=== PATIENT | female | born 1970 | race Hispanic/Latino ===

== ENCOUNTER 2016-08-27 15:10 | Emergency (ER) | payer OTHER ==
[~2016-08-27] VITALS: Ht 165.1 cm; Wt 77.1 kg
--- NOTE | 2016-08-27 16:28 | ED INFLUENZA/URI COMPLAINT ---
History of Present Illness General Chief Complaint: General Adult Stated Complaint: COUGH, CONGESTION SORE THROAT Source: patient, family, old records Exam Limitations: no limitations Vital Signs & Intake/Output Vital Signs & Intake/Output Vital Signs Date Time Temp Pulse Resp B/P Pulse O2 O2 Flow FiO2 Ox Delivery Rate 08/27 1706 97.6 94 16 127/84 97 Room Air 08/27 1528 97.6 97 16 146/91 98 Room Air Allergies Coded Allergies: No Known Allergies (03/09/16) Reconcile Medications Benzonatate (Tessalon Perle) 100 MG CAPSULE 1 CAP PO TID PRN cough Famotidine (Pepcid) 20 MG TABLET 1 TAB PO BID gerd Metoclopramide HCl (Reglan) 10 MG TABLET 1 TAB PO 4 TIMES/DAY PRN gerd 30 minutes before meals and bedtime Oseltamivir Phosphate (Tamiflu) 75 MG CAPSULE 1 CAP PO BID influenza Oxymetazoline HCl (Afrin) 0.05 % SPRAY 2 SPRAY NASB BID sinusitis Triage Note: PT TO ER C/C NON-PRODUCTIVE COUGH, SINUS PRESSURE, AND RIGHT EAR PAIN X 4 DAYS. DAUGHTER DIAGNOSED WITH FLU ON SUNDAY. PT AFEBRILE. Triage Nurses Notes Reviewed? yes Onset: 2-3 days Duration: day(s):, constant, continues in ED Timing: recent history Severity: moderate Prior Episodes/Possible Cause: illness exposure Modifying Factors: Improves With: medication. Associated Symptoms: cough, fever/chills, muscle aches, nasal congestion, nasal drainage LMP (ages 10-50): unknown : No Patient currently breastfeeds: No HPI: 2-3 days prior to admission patient daughter tested positive for influenza. One day later she developed symptoms of chills and nonproductive cough nasal congestion body aches with nausea and worsening reflux. She denies vomiting diarrhea chest pain shortness of breath headache dysuria rash bleeding . Past History Travel History Traveled to [place] past 21 day No Medical History Any Pertinent Medical History? see below for history Neurological: NONE EENT: NONE Cardiovascular: hyperlipidemia Respiratory: NONE Gastrointestinal: ACID REFLUX Hepatic: NONE Renal: NONE Musculoskeletal: NONE Psychiatric: anxiety, depression, "PANIC DISORDER" Endocrine: NONE Blood Disorders: NONE Cancer(s): NONE Surgical History Surgical History: none Psychosocial History What is your primary language Wallisian Tobacco Use: Never used Family History Hx Contributory? No Review of Systems Review of Systems Constitutional: Reports: see HPI, chills, malaise. EENTM: Reports: see HPI, nasal congestion, throat pain. Respiratory: Reports: see HPI, cough, short of breath. Cardiovascular: Reports: see HPI. GI: Reports: see HPI, abdominal pain, nausea. Genitourinary: Reports: see HPI. Musculoskeletal: Reports: see HPI, muscle stiffness. Skin: Reports: see HPI. Neurological/Psychological: Reports: see HPI, anxiety. Hematologic/Endocrine: Reports: see HPI. Immunologic/Allergic: Reports: see HPI, lymphadenopathy. All Other Systems: Reviewed and Negative Physical Exam Physical Exam General Appearance: well developed/nourished, alert, awake, anxious, mild distress Head: atraumatic, normal appearance, tenderness (maxillary sinus) Ears, Nose, Throat: moist mucous membrane, nasal congestion, nasal drainage, pharyngeal erythema Neck: normal inspection, supple, full range of motion, trachea midline, lymphadenopathy (R), lymphadenopathy (L) Respiratory: normal breath sounds, chest non-tender, no respiratory distress, quiet respiration, lungs clear Cardiovascular: regular rate/rhythm, normal peripheral pulses, norml femoral pulses equa Peripheral Pulses: 4+ carotid (R), 4+ carotid (L) Gastrointestinal: normal bowel sounds, soft, non-tender, no organomegaly Back: normal inspection, normal range of motion Extremities: normal inspection, normal capillary refill Neurologic/Psych: no motor/sensory deficits, awake, alert, oriented x 3, normal gait, normal mood/affect Reflexes: 2+: bicep (R), bicep (L). Skin: intact, normal color Lymphatic: adenopathy Core Measures Severe Sepsis Present: No Septic Shock Present: No Progress Differential Diagnosis: influenza, pneumonia, pharyngitis, sinusitis Plan of Care: Current Medications Sig/Vinnie Start time Last Medication Dose Stop Time Status Admin Famotidine 20 MG ONCE ONE 08/27 1630 UNVr (Pepcid) 08/27 163 Oseltamivir Phosphate 75 MG ONCE ONE 08/27 163 UNVr (Tamiflu 75MG) 08/27 163 Oxymetazoline HCl 2 SPRAY ONCE ONE 08/27 1630 UNVr (Afrin) 08/27 1631 Initial ED EKG: none Departure Departure Time of Disposition: 1637 Disposition: HOME OR SELF CARE Condition: Stable Clinical Impression Primary Impression: Influenza Secondary Impressions: Gastroesophageal reflux disease with esophagitis Referrals: UNKNOWN (PCP/Family) Departure Forms: Customer Survey General Discharge Information Prescriptions: Current Visit Scripts Oseltamivir Phosphate (Tamiflu) 1 CAP PO BID #10 CAP Oxymetazoline HCl (Afrin) 2 SPRAY NASB BID #30 ML Metoclopramide HCl (Reglan) 1 TAB PO 4 TIMES/DAY PRN gerd #30 TAB 30 minutes before meals and bedtime Famotidine (Pepcid) 1 TAB PO BID #60 TAB Benzonatate (Tessalon Perle) 1 CAP PO TID PRN cough #21 CAP
[2016-08-27 17:06] VITALS: BP 127/84
[2016-08-27] MEDS ORDERED: TESSALON PERLE100 M1 PO (17:13)
[2016-08-27] MEDS ORDERED: PEPCID20 M1 PO (17:13)
[2016-08-27] MEDS ORDERED: REGLAN10 M1 PO (17:13)
[2016-08-27] MEDS ORDERED: AFRIN30 ML NASB (17:13)
[2016-08-27] MEDS ORDERED: TAMIFLU75 M1 PO (17:13)
== END 2016-08-27 17:24 ==
LOC: ERH 15:10
DX: J11.1 Influenza due to unidentified influenza virus with other respiratory manifestations (principal); K21.0 Gastro-esophageal reflux disease with esophagitis